=== PATIENT | male | born 1940 | race Caucasian/White ===

== ENCOUNTER 2019-02-07 06:19 | Observation (INO) | payer OTHER ==
[2019-02-07] VITALS (22 sets, daily range): BP systolic 119–134; BP diastolic 50–86
[~2019-02-07] VITALS: Ht 175.3 cm; Wt 103.0 kg
--- NOTE | ~2019-02-07 | D ---
[facility] [place] [address] DISCHARGE SUMMARY Name: WERNER MARIANO Room #: 218-P [facility] Jo-Ann Simental#: [id number] Admission: 02/07/19 Attend Phys: Lucian Stafford MD Discharge: 02/08/19 Date of : 40 Report #: [id number] THIS REPORT FOR: //name// CC: Kel Stafford DATE OF SERVICE: 02/08/2019 ADMITTING DIAGNOSIS: Symptomatic paroxysmal atrial fibrillation. DISCHARGE DIAGNOSES: 1. Symptomatic paroxysmal atrial fibrillation. 2. Gastroesophageal reflux disease. 3. Dyslipidemia. FOLLOWUP: 1. EP nurse in [address] Stafford in April 2019. The patient will have set appointments records in hand. PROCEDURES PERFORMED: Atrial fibrillation ablation. DISCHARGE MEDICATIONS: Apixaban 5 mg daily, pantoprazole 40 mg daily, Symbicort b.i.d., atorvastatin 10 daily, flecainide 100 b.i.d., diltiazem 120 daily. DISCHARGE DIET: Heart healthy, salt restricted. ACTIVITY: Continue on No heavy lifting for 1 week. BRIEF CLINICAL HISTORY: See history and physical in the chart. HOSPITAL COURSE: The patient was admitted to the hospital, underwent uncomplicated radiofrequency ablation. This was without complications. Post-procedure, the patient was ambulating without limitations or activity. He has not had any recurrent symptomatology of atrial fibrillation. No symptoms of shortness of breath were noted by the patient. He is currently being discharged in stable and improved condition to follow up with the previously stated discharge instructions and medications. By: [id number] Rusty Jovel MD /nt
[2019-02-07 07:06] LABS: ABSOLUTE NEUTROPHILS 5.4 thou/uL (1.4-8.2); BASOPHILS 0.4 % (0.0-2.0); EOSINOPHILS 3.4 % (0.0-3.0); HEMATOCRIT 45.7 % (42.0-52.0); HEMOGLOBIN 15.2 gm/dL (14.0-18.0); LYMPHOCYTES 16.4 % (24.0-44.0); MCH 29.6 pg (26.0-34.0); MCHC 33.3 g/dL (28.0-37.0); MONOCYTES 9.8 % (1.0-8.0); PLATELET COUNT 216 thou/uL (150-400); RBC 5.13 mil/uL (4.50-6.00); RDW 13.7 % (10.5-14.5); WBC 7.7 thou/uL (4.0-11.0)
[2019-02-07 07:15] LABS: CALCIUM 9.8 mg/dL (8.5-10.1); CREATININE 1.1 mg/dL (0.7-1.3); POTASSIUM 4.5 mmol/L (3.5-5.1)
[2019-02-07 07:20] LABS: APTT 27.4 Seconds (24.5-32.8); PROTIME 10.3 Seconds (9.3-11.4)
[2019-02-07 07:21] LABS: ALBUMIN 3.8 g/dL (3.4-5.0); TOTAL BILIRUBIN 0.4 mg/dL (<0.1-1.0); TOTAL PROTEIN 7.4 g/dL (6.4-8.2)
[2019-02-07] MEDS ORDERED: CARDIZEM CD120 MG PO (07:24)
[2019-02-07] MEDS ORDERED: ELIQUIS5 MG PO (07:25)
[2019-02-07] MEDS ORDERED: PROTONIX40 M2 PO (07:26)
[2019-02-07] MEDS ORDERED: FLECAINIDE ACE150 MG PO (07:26)
[2019-02-07] MEDS ORDERED: SYMBICORT160 MCG/4. INH (07:27)
[2019-02-07] MEDS ORDERED: LIPITOR10 MG PO (07:28)
[2019-02-07] MEDS ORDERED: TAMBOCOR 100 M100 M1 PO (13:52)
--- NOTE | 2019-02-07 17:05 | NUR ---
PT ADMITED FROM SUPERVISORY AIDE. ADMISSION HX AND ASSESSMENT COMPLETED. PT ALERT AND ORIENTED. VSS. RIGHT GROIN INCISION C/D/I. NO HEMATOMA NOTED. POST CARDIAC CATH INSRUCTIONS GIVEN TO PT. PT VERBERLISED UNDERSTANDING. PLAN TO BE DISCHARGED IN AM. WILL CONTINUE TO MONIOR.
[2019-02-08] VITALS (7 sets, daily range): BP systolic 106–122; BP diastolic 53–59
--- NOTE | 2019-02-08 04:38 | NUR ---
ASSESSMENT DOCUMENTED.PT BEEN RESTING IN NO ACUTE DISTRESS.A/OX4.VSS.S/P ABLATION.ON MONITOR NSR.RA W/O RESP DISTRESS.UP AD MALENA TO BR VOIDING ADEQUATELY.PT DENIES PAIN OR ANY DISTRESS AT THIS TIME.PT POSSIBLY GOING HOME TODAY.WILL CONT TO MONITOR PER POC.
--- NOTE | 2019-02-08 10:54 | NUR ---
AAOX4. CALM, COOPERATIVE. ANTICIPATING DISCHARGE TODAY. RIGHT GROIN SITE SOFT, PAINLESS, DRESSING CDI. SR PER TELE. UP AD MALENA IN THE ROOM, GAIT STEADY. WILL CONTINUE TO FOLLOW CLOSELY.
--- NOTE | 2019-02-10 14:00 | P ---
[facility] [place] [address] PROCEDURE REPORT Name: WERNER MARIANO Room #: 218-P [facility] Jo-Ann Simental#: [id number] Admission: 02/07/19 Attend Phys: Lucian Stafford MD Discharge: 02/08/19 Date of : 40 Report #: [id number] THIS REPORT FOR: //name// CC: Kel Stafford DATE OF SERVICE: 02/07/2019 PREOPERATIVE DIAGNOSIS: Atrial fibrillation. POSTOPERATIVE DIAGNOSIS: Atrial fibrillation. INDICATIONS: The patient is a 78 year old with recurrent AFib despite antiarrhythmic drug therapy. He is here for ablation. PROCEDURES PERFORMED: 1. AFib ablation, CPT code 03977. 2. 3D mapping, CPT code 39390. 3. Intracardiac echo, CPT code 88027. ANESTHESIA: The patient underwent general anesthesia with no anesthesia-related complications. DESCRIPTION OF PROCEDURE: The patient underwent informed consent. We discussed the details of the procedure including the risks, which include, but not limited to bleeding, vascular damage, cardiac perforation, stroke, UT as well as damage to the comanche conduction system. He understood these risks and is willing to proceed. The patient was brought to the EP Laboratory in a fasting and sedated state, prepped and draped in a sterile fashion. I injected lidocaine at the right groin region, obtained access to the right femoral vein x 3, placing an 8, 9 and 7-Burm[place] short sheaths using the modified Seldinger technique. Next, under fluoroscopy, decapolar catheter was placed easily in the coronary sinus and an Ice catheter was placed into the right atrium. Next, using intracardiac ultrasound, 3D geometry of the left atrium was created. Of note, he did have a very thick interatrial septum, but there was an area anterior and midseptal location that was thin enough to cross. Due to the thick interatrial septum, visualization of the left-sided veins was somewhat challenging using intracardiac ultrasound. Next, the patient was systemically heparinized and a transseptal was performed using an SL1 sheath and a [place] needle. The first location I could not get the [place] needle to cross. Therefore, I reattempted a transseptal again and stuck little bit more posteriorly this time, but was able to cross with the needle and then advanced my wire into the left superior pulmonary vein. I then exchanged to the cryo sheath and placed this in the left atrium. Next, I used a [employer] Lasso catheter and obtained a 3D [facility] [address] [place] [address] PROCEDURE REPORT Name: WERNER MARIANO Room #: 218-P [facility] Jo-Ann ..#: [id number] Admission: 02/07/19 Attend Phys: Lucian Stafford MD Discharge: 02/08/19 Date of : 40 Report #: [id number] geometry of the left atrium. Again, it was kind of hard to find the left inferior pulmonary vein on Ice, but I was able to get into the three other veins without any issues. At baseline, the patient was in sinus rhythm. Next, I exchanged the Lasso catheter for the cryoablation balloon and we started isolating the veins. I started by isolating the left superior pulmonary vein. I performed a 4-minute freeze and it appeared that the vein had isolated. It was hard to see isolation of this vein. I performed a second 4-minute freeze and then after I isolated all the other veins, I gave an additional freeze at this vein prior to finishing the case. The third freeze was of 4 minutes' duration. After isolating the left superior vein, I turned my attention to the left inferior pulmonary vein. I performed a single 4-minute freeze as this vein isolated within 30 seconds. I then turned my attention to the right superior pulmonary vein. Phrenic nerve pacing was performed and the phrenic nerve appeared to be stable throughout all freezes. The first freeze was 110 seconds duration as it got pretty cold. The vein did isolate within 30 seconds. I performed a second freeze, which was only of 55 seconds duration as the vein got cold as well. I came off. I then performed a third freeze where I was a little less selective of the vein and this freeze was of 100 seconds duration. This vein was clearly isolated. I then turned my attention to the right inferior pulmonary vein. I performed a 4-minute freeze followed by 3-minute freeze. This vein isolated during the first freeze. Again, I rechecked all the veins and as I mentioned above, I decided to perform an additional insurance freeze of the left superior pulmonary vein. I then removed the cryoablation catheter from the left atrium and we placed a Lasso catheter back and created a detailed 3D voltage map and all four veins were now clearly isolated. As such, the procedure was concluded. I used intracardiac ultrasound and verified that there was no pericardial effusion. I then gave systemic protamine and once ACT was within acceptable range, catheters and sheaths were pulled and a [id number]-[id number] suture was deployed to the right groin. The patient awoke neurologically and hemodynamically intact. No complications and no significant bleeding. CONCLUSIONS: Successful atrial fibrillation ablation with isolation of the pulmonary veins. <ELECTRONICALLY SIGNED> By: Lucian Stafford MD 02/10/19 1400 1109 [id number] Lucian Stafford MD /[email or web address]
== END 2019-02-08 14:55 | disposition home or self-care (01) ==
LOC: CATH 06:19 → 2N 12:06
PROVIDERS: ADMIT Internal Medicine Cardiovascular Disease
DX: I48.0 Paroxysmal atrial fibrillation (principal); K21.9 Gastro-esophageal reflux disease without esophagitis; E78.5 Hyperlipidemia, unspecified; Z79.899 Other long term (current) drug therapy
CPT/HCPCS: 62110; 62900; 65020; 65040; 70005

== ENCOUNTER → 2019-08-19 | Outpatient (CLI) | payer OTHER ==
[~2019-08-19] MED LIST: CARDIZEM CD120 MG PO; ELIQUIS5 MG PO; FLECAINIDE ACE150 MG PO; LIPITOR10 MG PO; PROTONIX40 M2 PO; SYMBICORT160 MCG/4. INH; TAMBOCOR 100 M100 M1 PO
== END ==
LOC: SJCVC 13:16
DX: I48.0 Paroxysmal atrial fibrillation (principal); J44.9 Chronic obstructive pulmonary disease, unspecified; E78.00 Pure hypercholesterolemia, unspecified